=== PATIENT | male | born 1940 | race Caucasian/White ===

== ENCOUNTER 2022-02-11 14:55 | Inpatient (IN) | payer OTHER ==
[~2022-02-11] VITALS: Ht 180.3 cm; Wt 82.5 kg
[~2022-02-11 14:55] MED LIST: ATOR10 PO; CEPH500 PO; LEVSOD75 PO; Naproxen250 MG PO; Norco 5-325 Ta1 EACH PO; Prilosec Otc20 MG PO
[2022-02-11 15:30] LABS: BASOPHILS ABSOLUTE AUTO 0.03 K/mm3 (0.00-0.23); BASOPHILS PERCENT AUTO 0 % (0-2); EOSINOPHILS ABSOLUTE AUTO 0.03 K/mm3 (0.00-0.68); EOSINOPHILS PERCENT AUTO 0 % (0-6); Hematocrit 40.1 % (37.0-53.0); IMMATURE GRAN ABSOLUTE AUTO 0.07 K/mm3 (0.00-0.10); IMMATURE GRAN PERCENT AUTO 1 % (0-1); LYMPHOCYTES ABSOLUTE AUTO 3.76 K/mm3 (0.84-5.20); LYMPHOCYTES PERCENT AUTO 41 % (21-46); MONOCYTES ABSOLUTE AUTO 0.65 K/mm3 (0.16-1.47); MONOCYTES PERCENT AUTO 7 % (4-13); Mean Corpuscular HGB 28.4 pg (26.0-34.0); Mean Corpuscular HGB Conc 32.4 g/dL (31.5-36.5); Mean Corpuscular Volume 88 fL (80-100); NEUTROPHILS ABSOLUTE AUTO 4.54 K/mm3 (1.96-9.15); NEUTROPHILS PERCENT AUTO 50 % (41-73); Platelet Count 171 K/mm3 (150-400); RDW Standard Deviation 41.5 fL (35.1-46.3); Red Blood Cell Count 4.57 M/mm3 (4.30-5.90); White Blood Cell Count 9.08 K/mm3 (4.00-11.30)
[2022-02-11 15:50] LABS: Albumin, Blood 3.5 g/dL (3.4-5.0); Albumin/Globulin Ratio 1.6 (0.8-1.8); Bilirubin, Total 0.5 mg/dL (0.1-1.0); Bun/Creatinine Ratio 13.3 (12.0-20.0); Calcium, Blood 8.8 mg/dL (8.5-10.1); Creatinine, Blood 0.75 mg/dL (0.60-1.20); Globulin, Blood 2.2 g/dL (2.2-4.0); Potassium, Blood 3.7 mmol/L (3.5-5.5); Total Protein, Blood 5.7 g/dL (6.4-8.2)
[2022-02-11 16:21] LABS: International Normalized Ratio 1.09; Prothrombin Time Results 11.4 Sec (9.7-11.5)
[2022-02-11] MEDS ORDERED: ELIQUIS2.5 MG PO (18:13)
[2022-02-11] MEDS ORDERED: METO25ER PO (18:14)
[2022-02-11] MEDS ORDERED: OMEGA-3 FISH O1 EAC6 PO (23:44)
[2022-02-11] MEDS ORDERED: Hair, Skin & N1 EACH PO (23:44)
[2022-02-11] MEDS ORDERED: Aspir 8181 MG PO (23:47)
[2022-02-11] MEDS ORDERED: GARLIC200 MG PO (23:48)
[2022-02-11] MEDS ORDERED: ASCO500 PO (23:49)
[2022-02-11 23:58] LABS: Hemoglobin 12.5 g/dL (13.5-17.5)
--- NOTE | 2022-02-12 04:56 | NUR ---
SHIFT SUMMARY: A/OX4, STANDBY ASSIST WITH STANDING/AMBULATION. PATIENT HAD POSITIVE ORTHOSTATIC VITALS SYSTOLIC DROPPING INTO THE 80'S- NON SYMPTOMATIC. PAIN MEDICATION ADMINISTERED X1 DUE TO INCREASING LEFT SHOULDER PAIN, PATIENT RESPONDED WELL TO MEDICATION. BED ALARM ACTIVATED, BED IN LOW POSITION, CALL YU IN REACH.
[2022-02-12 05:12] LABS: Hematocrit 33.7 % (37.0-53.0); Mean Corpuscular HGB 28.8 pg (26.0-34.0); Mean Corpuscular HGB Conc 32.6 g/dL (31.5-36.5); Mean Corpuscular Volume 88 fL (80-100); Mean Platelet Volume 8.9 fL (9.1-12.4); Platelet Count 134 K/mm3 (150-400); RDW Coefficient Variation 13.2 % (11.7-14.2); RDW Standard Deviation 42.3 fL (35.1-46.3); Red Blood Cell Count 3.82 M/mm3 (4.30-5.90); White Blood Cell Count 9.52 K/mm3 (4.00-11.30)
[2022-02-12 05:37] LABS: Bun/Creatinine Ratio 17.9 (12.0-20.0); Calcium, Blood 8.1 mg/dL (8.5-10.1); Creatinine, Blood 0.67 mg/dL (0.60-1.20); Potassium, Blood 3.8 mmol/L (3.5-5.5)
--- NOTE | 2022-02-12 18:33 | NUR ---
SHIFT SUMMARY PT A&O X4. [place]. LARGE BRUISE ON L SHOULDER. PT HAS BEEN RELUCTANT TO TAKE PAIN MEDS, STATING THAT HE DOESN'T WANT TO GET CONSTIPATED. REASSURED HIM THAT WE HAVE HIM ON STOOL SOFTNERS & LAXATIVES. HE REMAINED RELUCTANT FOR WHOLE SHIFT. AT 1815 HE ASKED FOR PAIN MEDICATION. PLACED THE SLING THAT ORTHO MD REQUESTED. EXPLAINED TO PT RATIONALE FOR MAINTAINING GOOD PAIN CONTROL. HE IS 1 PERSON STDBY ASSIST FOR RESTROOM USE. PLAN IS POSSIBLE DC HOME TOMORROW.
--- NOTE | 2022-02-13 04:55 | NUR ---
SHIFT SUMMARY 81 YR M ADMITTED ON 02/11/22 FOR CRACKED CLAVICAL AND RIBS ON LEFT SIDE. FULL CODE. NO ACUTE CHANGES THIS SHIFT. PT HAS HAD NO C/O PAIN OR DISCOMFORT. HE HAS BEEN AMBULATING INDEPENDANTLY TO THE BATHROOM. HE WILL LIKELY DISCHARGE TODAY.
--- NOTE | 2022-02-13 18:16 | NUR ---
SHIFT SUMMARY PT A&O X 4. ORTHO STATIC BP's +. (SEE VITAL SIGNS) MD STARTED PT ON MIDODRINE. PT & OT EVALS DONE TODAY. L SHOULDER PAINFUL PT IS REQUESTING PAIN MEDS Q 12 HRS. PT IS STDBY ASSISIT TO RESTROOM. IS WEARING A SLING ON HIS L ARM. PLAN IS LIKELY HOME TOMORROW IF CLINICALLY STABLE.
--- NOTE | 2022-02-13 21:00 | NUR ---
NURSE NOTE: [place] NOTIFIED PATIENTS HR TACHYCARDIA 120'S-150'S AT REST LASTING APPROXIMATELY 10MIN, BLOOD PRESSURE AT THAT TIME WAS 92/67 NON SYMPTOMATIC. WITHIN 10 MINUTES HR WENT DOWNT TO 112 AND BLOOD PRESSURE UP TO 100/69. REPORTED PATIENT HAD SIMILAR EPISODE DURING DAY SHIFT AND EXPERIENCED SOME CHEST PAIN AT THAT TIME. PATIENT HAS HISTORY OF [facility] AND DOES EXPERIENCE EPISODES OF INCREASED HR WITH SOME CHEST DISCOMFORT AT TIMES. GAVE TELEPHONE ORDER FOR NORMAL SALINE IV 75 ML/HR FOR 1LITER. NO OTHER INTERVENTIONS OR ORDERS AT THIS TIME.
[2022-02-14 05:38] LABS: BASOPHILS ABSOLUTE AUTO 0.02 K/mm3 (0.00-0.23); BASOPHILS PERCENT AUTO 0 % (0-2); EOSINOPHILS ABSOLUTE AUTO 0.06 K/mm3 (0.00-0.68); EOSINOPHILS PERCENT AUTO 1 % (0-6); Hematocrit 32.3 % (37.0-53.0); Hemoglobin 10.1 g/dL (13.5-17.5); IMMATURE GRAN ABSOLUTE AUTO 0.02 K/mm3 (0.00-0.10); IMMATURE GRAN PERCENT AUTO 0 % (0-1); LYMPHOCYTES ABSOLUTE AUTO 2.57 K/mm3 (0.84-5.20); LYMPHOCYTES PERCENT AUTO 35 % (21-46); MONOCYTES ABSOLUTE AUTO 0.81 K/mm3 (0.16-1.47); MONOCYTES PERCENT AUTO 11 % (4-13); Mean Corpuscular HGB 28.5 pg (26.0-34.0); Mean Corpuscular HGB Conc 31.3 g/dL (31.5-36.5); Mean Corpuscular Volume 91 fL (80-100); Mean Platelet Volume 9.1 fL (9.1-12.4); NEUTROPHILS ABSOLUTE AUTO 3.92 K/mm3 (1.96-9.15); NEUTROPHILS PERCENT AUTO 53 % (41-73); Platelet Count 117 K/mm3 (150-400); RDW Coefficient Variation 13.3 % (11.7-14.2); RDW Standard Deviation 44.7 fL (35.1-46.3); Red Blood Cell Count 3.54 M/mm3 (4.30-5.90)
[2022-02-14 06:12] LABS: Albumin, Blood 2.8 g/dL (3.4-5.0); Anion Gap 6 mmol/L (6-16); Blood Urea Nitrogen 14 mg/dL (8-24); Bun/Creatinine Ratio 18.7 (12.0-20.0); CHOL/HDL RATIO 1.9; CO2, Blood 28 mmol/L (21-32); Calcium, Blood 8.4 mg/dL (8.5-10.1); Chloride, Blood 108 mmol/L (98-108); Cholesterol 110 mg/dL (50-200); Creatinine, Blood 0.75 mg/dL (0.60-1.20); Glomerular Filtration Rate 90 (60-); Glucose, Blood 103 mg/dL (70-99); HDL Cholesterol 57 mg/dL (>39); LDL/HDL RATIO 0.7; Low Density Lipoprotein Chol 41 mg/dL (0-110); Magnesium, Blood 2.2 mg/dL (1.6-2.4); Phosphorus, Blood 3.2 mg/dL (2.5-4.9); Sodium, Blood 142 mmol/L (136-145); Triglycerides 58 mg/dL (30-160); Very Low Density Lipoprot Chol 11 mg/dL (6-32)
--- NOTE | 2022-02-14 08:17 | NUR ---
SHIFT SUMMARY: APPROXIMATELY 2039 PATIENT HAD TACHYCARDIA 120'S-150'S LASTING 10 MINUTES NO CHEST PAIN AT THE TIME, SLIGHT DECREASED BP. TELEMETRY ORIGINALLY READ SINUS TACHYCARDIA AND LATER INFORMED PATIENTS HR WAS IN AFIB AND CONVERTED TO NORMAL SINUS RHYTHM AROUND 2099. NO ADDITIONAL CARDIAC EVENTS OR CHANGES. PATIENTS PAIN HAS BEEN WELL CONTROLLED- MEDICATED ONCE THROUGHOUT THE SHIFT. CONTINUED STAND BY ASSIST DUE TO ORTHOSTATIC HYPOTENSION.
--- NOTE | 2022-02-14 18:07 | NUR ---
SHIFT SUMMARY PATIENT DENIES PAIN, NAUSEA, AND SHORTNESS OF BREATH. PATIENT IS INDEPENDENT IN ROOM. PATIENT HAD POSITIVE ORTHOSTATIC VS, AFTER MIDODRINE ADMINISTRATION. DR. PATEL NOTIFIED. NEW ORDERS FOR INCREASED DOSE OF MIDODRINE. PATIENT DOES NOT REPORT SYMPTOMS WITH THE ORTHOSTATIC VS. PATIENT IS EATING AND DRINKING WELL. PATIENT IS EAGER TO GET HOME. PATIENT IS PLEASANT AND COOPERATIVE WITH CARE.
--- NOTE | 2022-02-15 05:27 | NUR ---
PT A/0X4, INDEPENDENT IN ROOM AND ABLE TO MAKE NEEDS KNOWN. PT AWARE OF OWN LIMITATIONS AND WHEN TO ASK FOR ASSISSTANCE. PT MEDICATED PER OCT. PT WITH NO NEW COMPLAINS AT THIS TIME. PT HOPEFUL THAT HE WILL BE ABLE TO GO HOME TODAY.
[2022-02-15 06:08] LABS: Anion Gap 5 mmol/L (6-16); Blood Urea Nitrogen 14 mg/dL (8-24); CO2, Blood 30 mmol/L (21-32); Calcium, Blood 8.6 mg/dL (8.5-10.1); Chloride, Blood 105 mmol/L (98-108); Glomerular Filtration Rate 92 (60-); Glucose, Blood 103 mg/dL (70-99); Phosphorus, Blood 3.3 mg/dL (2.5-4.9); Potassium, Blood 3.9 mmol/L (3.5-5.5); Sodium, Blood 140 mmol/L (136-145)
[2022-02-15] MEDS ORDERED: ACETAMINOPHEN500 M2 PO (11:37)
[2022-02-15] MEDS ORDERED: MIDO5 PO (11:38)
[2022-02-15] MEDS ORDERED: DOCU100 PO (11:38)
[2022-02-15] MEDS ORDERED: MIRALAX17 GM PO (11:39)
[2022-02-15] MEDS ORDERED: SENN187 PO (11:39)
[2022-02-15] MEDS ORDERED: ROXICODONE5 MG PO (11:40)
--- NOTE | 2022-02-15 13:46 | NUR ---
DISCHARGE PATIENT TRANSPORTED VIA WHEELCHAIR TO PRIVATE VEHICLE. DISCHARGE INSTRUCTIONS EXPLAINED TO PATIENT. PATIENT STATED UNDERSTANDING. PACKET SENT WITH PATIENT. HARD SCRIPT SENT WITH PATIENT. BELONGINGS SENT WITH PATIENT. IV REMOVED WITHOUT DIFFICULTY. TELE REMOVED WITHOUT DIFFICULTY. MEDICATIONS FAXED TO PREFERRED PHARMACY. [facility] TO SCHEDULE FOLLOW UP APPOINTMENT.
== END 2022-02-15 13:33 | disposition home or self-care (01) | DRG 206 ==
LOC: ER 14:55 → MEDS 14:56
PROVIDERS: Emergency Medicine; Family Medicine; ADMIT Internal Medicine
DX: S27.69XA Other injury of pleura, initial encounter (principal); S22.42XA Multiple fractures of ribs, left side, initial encounter for closed fracture; I48.92 Unspecified atrial flutter; E03.9 Hypothyroidism, unspecified; S42.032A Displaced fracture of lateral end of left clavicle, initial encounter for closed fracture; I95.1 Orthostatic hypotension; K21.9 Gastro-esophageal reflux disease without esophagitis; E78.5 Hyperlipidemia, unspecified; Z79.01 Long term (current) use of anticoagulants; Z90.89 Acquired absence of other organs; Z98.890 Other specified postprocedural states; Z79.899 Other long term (current) drug therapy; V19.9XXA Pedal cyclist (driver) (passenger) injured in unspecified traffic accident, initial encounter; Y93.55 Activity, bike riding; Y92.828 Other wilderness area as the place of occurrence of the external cause
CPT/HCPCS: 36415; 70450; 71101; 71260; 73030; 80048; 80053; 80061; 80069; 83735; 84443; 84484; 85014; 85018; 85025; 85027; 85610; 85730; 93005; 93010; 93306; 93880; 96360; 96361; 97110; 97161; 97165; 97530; 99285-25; A9270; G0378; J7030; Q9967

== ENCOUNTER 2022-02-25 18:05 | Observation (INO) | payer OTHER ==
[~2022-02-25] VITALS: Ht 180.3 cm; Wt 85.2 kg
[~2022-02-25 18:05] MED LIST changes: +ACETAMINOPHEN500 M2 PO; +ASCO500 PO; +Aspir 8181 MG PO; +DOCU100 PO; +ELIQUIS2.5 MG PO; +GARLIC200 MG PO; +Hair, Skin & N1 EACH PO; +METO25ER PO; +MIDO5 PO; +MIRALAX17 GM PO; +OMEGA-3 FISH O1 EAC6 PO; +ROXICODONE5 MG PO; +SENN187 PO
[2022-02-25] MEDS ORDERED: Selenomax200 MCG PO (18:32)
[2022-02-25 18:46] LABS: BASOPHILS ABSOLUTE AUTO 0.03 K/mm3 (0.00-0.23); BASOPHILS PERCENT AUTO 0 % (0-2); EOSINOPHILS ABSOLUTE AUTO 0.05 K/mm3 (0.00-0.68); EOSINOPHILS PERCENT AUTO 1 % (0-6); Hematocrit 37.7 % (37.0-53.0); Hemoglobin 12.1 g/dL (13.5-17.5); IMMATURE GRAN ABSOLUTE AUTO 0.04 K/mm3 (0.00-0.10); IMMATURE GRAN PERCENT AUTO 0 % (0-1); LYMPHOCYTES ABSOLUTE AUTO 2.65 K/mm3 (0.84-5.20); LYMPHOCYTES PERCENT AUTO 28 % (21-46); MONOCYTES ABSOLUTE AUTO 0.94 K/mm3 (0.16-1.47); MONOCYTES PERCENT AUTO 10 % (4-13); Mean Corpuscular HGB 28.4 pg (26.0-34.0); Mean Corpuscular HGB Conc 32.1 g/dL (31.5-36.5); Mean Corpuscular Volume 89 fL (80-100); Mean Platelet Volume 9.1 fL (9.1-12.4); NEUTROPHILS ABSOLUTE AUTO 5.86 K/mm3 (1.96-9.15); NEUTROPHILS PERCENT AUTO 61 % (41-73); Platelet Count 244 K/mm3 (150-400); RDW Coefficient Variation 13.9 % (11.7-14.2); RDW Standard Deviation 44.8 fL (35.1-46.3); Red Blood Cell Count 4.26 M/mm3 (4.30-5.90); White Blood Cell Count 9.57 K/mm3 (4.00-11.30)
[2022-02-25 19:07] LABS: Albumin, Blood 3.2 g/dL (3.4-5.0); Albumin/Globulin Ratio 1.2 (0.8-1.8); Bilirubin, Total 0.7 mg/dL (0.1-1.0); Bun/Creatinine Ratio 16.9 (12.0-20.0); Calcium, Blood 8.4 mg/dL (8.5-10.1); Creatinine, Blood 0.71 mg/dL (0.60-1.20); Globulin, Blood 2.6 g/dL (2.2-4.0); Magnesium, Blood 2.2 mg/dL (1.6-2.4); Potassium, Blood 3.8 mmol/L (3.5-5.5); Total Protein, Blood 5.8 g/dL (6.4-8.2)
[2022-02-25] MEDS ORDERED: ZINC15 PO (21:49)
[2022-02-25] MEDS ORDERED: NIAC500 PO (21:50)
--- NOTE | 2022-02-26 05:40 | NUR ---
CHEF BROILER OR FRY SUMMARY PT IS ALERT AND COMMUNICATING APPROPRIATELY. PT HAS REMAINED NSR IN THE 70'S-80'S EXCEPT FOR WHEN HE WAS UP TO USE THE RESTROOM HE WAS ST 100'S WHILE UP. BP WAS WNL AND STABLE THIS SHIFT. PT DENIED ANY CP OR PRESSURE THIS SHIFT. PT DID REPORT SOME PAIN IN HIS RIBS FROM PREVIOUS FALL. PT HAS BEEN RESTING IN BED FOR MOST OF THE NIGHT. FLUIDS RUNNING AT 125ML/HR. PT VOIDING WELL. WILL REPORT TO ONCOMING RN.
[2022-02-26] MEDS ORDERED: METOPROLOL SUCC25 MG PO (14:00)
--- NOTE | 2022-02-26 15:29 | NUR ---
discharge summary: PATIENT IN NO SIGN OF ACUTE DISTRESS, PATIENT DENIES CHEST PAIN DIZZINESS, SOB, OR LIGHTHEADEDNESS. PATIENT AMBULATING WELL WITHOUT THE NEED OF STAFF, BUT DUE TO FALL RISK, PATIENT WAS ALWAYS A SBA. PATIENT WAS PLEASANT. ALERT AND OREIENTED, WITH NO QUESTIONS OR CONCERNS THAT WERE NOT ADDRESSED BEFORE OR AT THE TIME OF DISHCARGE. DISCHARGE INSTRUCTIONS WERE COMPLETELY UNDERSTOOD. PATIENT WILL CALL [facility] IF NOT HEARD FROM THEM BY WEDNESDAY BY ON. PATIENT STILL HAS ZIO PATCH IN PLACE, NO ECHO TODAY DUE TO RECENT ECHO ON THE FOR EXACT SAME REASON. PATIENT TO FOLLOW UP WITH PCP. IV REMOVED AND TELE REMOVED. NO CONCERNS OR QEUESTIONS FROM THE PATIENT OR THIS HELP DESK REPRESENTATIVE AT THIS TIME.
== END 2022-02-26 15:20 | disposition home or self-care (01) ==
LOC: ER 18:05 → PCU 18:06 → ER 21:29 → PCU 21:41
PROVIDERS: Student in an Organized Health Care Education/Training Program; ADMIT Internal Medicine
DX: I48.92 Unspecified atrial flutter (principal); I48.0 Paroxysmal atrial fibrillation; I95.89 Other hypotension; E03.9 Hypothyroidism, unspecified; K21.9 Gastro-esophageal reflux disease without esophagitis; E78.5 Hyperlipidemia, unspecified; Z79.82 Long term (current) use of aspirin; Z79.899 Other long term (current) drug therapy
CPT/HCPCS: 36415; 71045; 80053; 83735; 84484; 85025; 93005; 93010; 96360; 96372; 99285-25; A9270; G0378; J1650; J7030; J7120

== ENCOUNTER 2022-03-12 17:13 | Emergency (ER) | payer OTHER ==
[~2022-03-12] VITALS: Ht 180.3 cm; Wt 82.5 kg
[~2022-03-12 17:13] MED LIST changes: +METOPROLOL SUCC25 MG PO; +NIAC500 PO; +OMEP20ER PO; -Prilosec Otc20 MG PO; +Selenomax200 MCG PO; +ZINC15 PO
[2022-03-12 18:50] LABS: BASOPHILS ABSOLUTE AUTO 0.02 K/mm3 (0.00-0.23); BASOPHILS PERCENT AUTO 0 % (0-2); EOSINOPHILS ABSOLUTE AUTO 0.04 K/mm3 (0.00-0.68); EOSINOPHILS PERCENT AUTO 1 % (0-6); Hematocrit 38.9 % (37.0-53.0); Hemoglobin 12.8 g/dL (13.5-17.5); IMMATURE GRAN ABSOLUTE AUTO 0.02 K/mm3 (0.00-0.10); IMMATURE GRAN PERCENT AUTO 0 % (0-1); LYMPHOCYTES ABSOLUTE AUTO 2.62 K/mm3 (0.84-5.20); LYMPHOCYTES PERCENT AUTO 30 % (21-46); MONOCYTES PERCENT AUTO 11 % (4-13); Mean Corpuscular HGB 28.6 pg (26.0-34.0); Mean Corpuscular HGB Conc 32.9 g/dL (31.5-36.5); Mean Corpuscular Volume 87 fL (80-100); Mean Platelet Volume 9.3 fL (9.1-12.4); NEUTROPHILS ABSOLUTE AUTO 5.12 K/mm3 (1.96-9.15); NEUTROPHILS PERCENT AUTO 58 % (41-73); Platelet Count 157 K/mm3 (150-400); RDW Coefficient Variation 13.4 % (11.7-14.2); RDW Standard Deviation 43.1 fL (35.1-46.3); Red Blood Cell Count 4.48 M/mm3 (4.30-5.90); White Blood Cell Count 8.82 K/mm3 (4.00-11.30)
[2022-03-12 19:34] LABS: Albumin, Blood 3.4 g/dL (3.4-5.0); Albumin/Globulin Ratio 1.4 (0.8-1.8); Bilirubin, Total 0.6 mg/dL (0.1-1.0); Bun/Creatinine Ratio 17.4 (12.0-20.0); Calcium, Blood 8.6 mg/dL (8.5-10.1); Creatinine, Blood 0.69 mg/dL (0.60-1.20); Globulin, Blood 2.4 g/dL (2.2-4.0); Potassium, Blood 4.1 mmol/L (3.5-5.5); Total Protein, Blood 5.8 g/dL (6.4-8.2)
[2022-03-12] MEDS ORDERED: MELATONIN5 M1 PO (22:59)
== END 2022-03-12 23:20 | disposition home or self-care (01) ==
LOC: ER 17:13
PROVIDERS: Emergency Medicine
DX: I95.1 Orthostatic hypotension (principal); K21.9 Gastro-esophageal reflux disease without esophagitis; E03.9 Hypothyroidism, unspecified; E78.5 Hyperlipidemia, unspecified; Z79.899 Other long term (current) drug therapy; Z79.82 Long term (current) use of aspirin
CPT/HCPCS: 36415; 80053; 84484; 85025; 93005; 93010; 96361; 96365; 96366; 99284-25; J3475; J7030

== ENCOUNTER 2022-03-14 22:26 | Inpatient (IN) | payer OTHER ==
[~2022-03-14] VITALS: Ht 180.3 cm; Wt 83.1 kg
[~2022-03-14 22:26] MED LIST changes: +MELATONIN5 M1 PO
[2022-03-14 23:04] LABS: BASOPHILS ABSOLUTE AUTO 0.02 K/mm3 (0.00-0.23); BASOPHILS PERCENT AUTO 0 % (0-2); EOSINOPHILS ABSOLUTE AUTO 0.08 K/mm3 (0.00-0.68); EOSINOPHILS PERCENT AUTO 1 % (0-6); Hematocrit 35.7 % (37.0-53.0); Hemoglobin 11.8 g/dL (13.5-17.5); IMMATURE GRAN ABSOLUTE AUTO 0.02 K/mm3 (0.00-0.10); IMMATURE GRAN PERCENT AUTO 0 % (0-1); LYMPHOCYTES ABSOLUTE AUTO 2.85 K/mm3 (0.84-5.20); LYMPHOCYTES PERCENT AUTO 33 % (21-46); MONOCYTES PERCENT AUTO 9 % (4-13); Mean Corpuscular HGB 28.6 pg (26.0-34.0); Mean Corpuscular HGB Conc 33.1 g/dL (31.5-36.5); Mean Corpuscular Volume 87 fL (80-100); Mean Platelet Volume 9.4 fL (9.1-12.4); NEUTROPHILS PERCENT AUTO 57 % (41-73); Platelet Count 142 K/mm3 (150-400); RDW Coefficient Variation 13.3 % (11.7-14.2); RDW Standard Deviation 41.6 fL (35.1-46.3); Red Blood Cell Count 4.12 M/mm3 (4.30-5.90); White Blood Cell Count 8.77 K/mm3 (4.00-11.30)
[2022-03-14 23:16] LABS: Albumin, Blood 3.1 g/dL (3.4-5.0); Albumin/Globulin Ratio 1.7 (0.8-1.8); Bilirubin, Total 0.4 mg/dL (0.1-1.0); Bun/Creatinine Ratio 12.8 (12.0-20.0); Calcium, Blood 8.2 mg/dL (8.5-10.1); Creatinine, Blood 0.63 mg/dL (0.60-1.20); Globulin, Blood 1.8 g/dL (2.2-4.0); Magnesium, Blood 1.9 mg/dL (1.6-2.4); Potassium, Blood 3.4 mmol/L (3.5-5.5); Total Protein, Blood 4.9 g/dL (6.4-8.2)
--- NOTE | 2022-03-15 06:08 | NUR ---
SHIFT SUMMARY Patient's A/O status still MIGUEL t/o shift. Patient continued to moan out, FLACC score 7. Hospitalist contacted and order received. Medication given and patient able to sleep. While irrigating gong catheter at beginning of shift, what appeared to be a large stone came out. Saved specimen and sent to lab per order. Patients' BP remains soft with MAP hovering 60-65 and SBP 90's/80's. Patient was moved to a lift room, [facility] this shift. BP with SBP in 80-90's with MAP ranging from 57-mid 60's. MD notified regarding low MAP, order to reassess in an hour. Reassessment shows MAP > 60. Will report to dayshift RN.
--- NOTE | 2022-03-15 06:14 | NUR ---
SHIFT SUMMARY Assumed care of pt at 0115 as an ER admit. A/Ox4, [place]. SBA d/t hypotension and recent syncopy and falls. Reports no pain or CP/pressure. 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 Bruising noted to left shoulder/chest from recent fall. When admitting patient, nitroglycerin tabs in a jar fell out of his pocket. Asked patient if he took any recently and he replied with "no". BP stable with SBP in low 100's and MAP>60. Will report to dayshift RN.
[2022-03-15 07:15] LABS: BASOPHILS ABSOLUTE AUTO 0.02 K/mm3 (0.00-0.23); BASOPHILS PERCENT AUTO 0 % (0-2); EOSINOPHILS ABSOLUTE AUTO 0.09 K/mm3 (0.00-0.68); EOSINOPHILS PERCENT AUTO 1 % (0-6); IMMATURE GRAN ABSOLUTE AUTO 0.02 K/mm3 (0.00-0.10); IMMATURE GRAN PERCENT AUTO 0 % (0-1); LYMPHOCYTES ABSOLUTE AUTO 3.42 K/mm3 (0.84-5.20); LYMPHOCYTES PERCENT AUTO 52 % (21-46); MONOCYTES PERCENT AUTO 9 % (4-13); Mean Corpuscular HGB 28.4 pg (26.0-34.0); Mean Corpuscular HGB Conc 32.4 g/dL (31.5-36.5); Mean Corpuscular Volume 88 fL (80-100); Mean Platelet Volume 9.5 fL (9.1-12.4); NEUTROPHILS ABSOLUTE AUTO 2.39 K/mm3 (1.96-9.15); NEUTROPHILS PERCENT AUTO 37 % (41-73); Platelet Count 136 K/mm3 (150-400); RDW Coefficient Variation 13.5 % (11.7-14.2); RDW Standard Deviation 43.2 fL (35.1-46.3); Red Blood Cell Count 4.23 M/mm3 (4.30-5.90); White Blood Cell Count 6.54 K/mm3 (4.00-11.30)
[2022-03-15 07:38] LABS: Albumin, Blood 3.1 g/dL (3.4-5.0); Albumin/Globulin Ratio 1.6 (0.8-1.8); Bilirubin, Total 0.6 mg/dL (0.1-1.0); Bun/Creatinine Ratio 8.6 (12.0-20.0); CPK Creatine Kinase 54 U/L (39-308); Calcium, Blood 8.4 mg/dL (8.5-10.1); Creatinine, Blood 0.7 mg/dL (0.60-1.20); Globulin, Blood 1.9 g/dL (2.2-4.0); Potassium, Blood 4.2 mmol/L (3.5-5.5)
[2022-03-15 07:41] LABS: International Normalized Ratio 1.09; Prothrombin Time Results 11.4 Sec (9.7-11.5)
[2022-03-15 09:59] LABS: Source, Urine Clean Catch
[2022-03-15 10:04] LABS: Appearance, Urine Clear (Clear); Bilirubin, Urine Neg (Neg); Blood, Urine Neg (Neg); Color, Urine Yellow (P-Yellow); Glucose Qualitative, Urine Neg (Neg); Ketones, Urine Neg (Neg); Leukocyte Esterase, Urine Neg (Neg); Nitrite, Urine Neg (Neg); Protein, Urine Neg (Neg); Urobilinogen, Urine NORM (Normal)
[2022-03-15 15:21] LABS: CPK Creatine Kinase 47 U/L (39-308)
[2022-03-15] MEDS ORDERED: Amiodarone HCl200 MG PO (16:01)
[2022-03-15] MEDS ORDERED: MIDODRINE HCL10 M9 PO (16:02)
--- NOTE | 2022-03-15 16:59 | NUR ---
SHIFT SUMMARY; ASSUMED CARE AT 0700. A/A/OX4 DURING SHIFT. INDEPENDANT IN ROOM. VSS, DISCHARGE INSTRUCTIONS REVIEWED AND MEDS FAXED TO [facility]. DC'D TO HOME IN NO ACUTE DISTRESS.
== END 2022-03-15 17:07 | disposition home or self-care (01) | DRG 312 ==
LOC: ER 22:26 → PCU 22:27
PROVIDERS: Emergency Medicine; ADMIT Internal Medicine
DX: I95.1 Orthostatic hypotension (principal); I48.0 Paroxysmal atrial fibrillation; E03.9 Hypothyroidism, unspecified; K21.9 Gastro-esophageal reflux disease without esophagitis; E78.5 Hyperlipidemia, unspecified; Z79.82 Long term (current) use of aspirin; Z79.899 Other long term (current) drug therapy; Z98.890 Other specified postprocedural states; E87.6 Hypokalemia; E83.42 Hypomagnesemia; D64.9 Anemia, unspecified
CPT/HCPCS: 36415; 71045; 80053; 81003; 82550; 83735; 83880; 84484; 85025; 85610; 93005; 93010; 96372; 99285-25; A9270; G0378; J1650; J3475; J3480; J7030; J7050

== ENCOUNTER → 2023-01-21 | Outpatient (CLI) | payer OTHER ==
[~2023-01-21] MED LIST changes: +Amiodarone HCl200 MG PO; +MIDODRINE HCL10 M9 PO
== END | disposition home or self-care (01) ==
LOC: LAB 16:49 → LAB SHORT 16:49
DX: E03.8 Other specified hypothyroidism (principal)
CPT/HCPCS: 84443